=== PATIENT | female | born 1975 | race American Indian/Alaskan Native ===

== ENCOUNTER 2018-10-18 13:15 | Emergency (ER) | payer BC ==
[2018-10-18 14:05] VITALS: BP 141/84
--- NOTE | 2018-10-18 14:07 | Event Note ---
ED Screening Note Date of service: 10/18/18 Time: 14:03 ED Screening Note: This is a 43 y.o. F. that presents to the ER with rash to right foot. Patient states she got a tattoo in July. Reports sand fell onto foot when she removed a beach chair from her trunk. She was placed on Bactrim, Keflex, and topical antibiotics with some improvement but continue to have delayed healing. She was seen by Urgent care and ER. This initial assessment/diagnostic orders/clinical plan/treatment(s) is/are subject to change based on patients health status, clinical progression and re- assessment by fellow clinical providers in the ED. Further treatment and workup at subsequent clinical providers discretion. Patient/guardian urged not to elope from the ED as their condition may be serious if not clinically assessed and managed. Initial orders include: labs ACC for further evaluation
[2018-10-18 14:42] LABS: Hematocrit 30.7 % (30.3-42.9); Hemoglobin 9.8 gm/dl (10.1-14.3); Mean Corpuscular HGB Conc 32 % (30-34); Mean Corpuscular Volume 71 fl (79-97); Platelet Count 291 K/mm3 (140-440); Red Cell Distribution Width 18.4 % (13.2-15.2)
[2018-10-18 15:00] LABS: BUN/Creatinine Ratio 9; Blood Urea Nitrogen 8 mg/dL (7-17); Calcium 8.7 mg/dL (8.4-10.2); Hemolysis Index 0
--- NOTE | 2018-10-18 15:37 | Emergency Department Report ---
HPI - General Chief Complaint: Skin Rash Time Seen by Provider: 10/18/18 14:02 - HPI HPI: 43-year-old female presents to the emergency department with the complaint of a persistent rash or infection of the right foot. The patient got a tattoo on the dorsal portion of her right foot in July of this year and says that she accidentally dumped a bunch of sand onto about 2 days after she got the tattoo. This caused an infection. She was seen at an emergency department and diagnosed with a cellulitis and placed on Keflex. At the time she says it was red and had some pus coming from it. About 2 weeks ago, the patient went to an urgent care where she was placed on Bactrim and Bactroban. She finished this about 5 days ago. She says that this treatment seemed to help but did not completely resolve the rash. Now she complains of small itchy bumps to the dorsum of the right foot over her tattoo. She also thinks she may have had a reaction to the Bactrim as she has some severe itching to her back, arms. She denies any fever. She denies having a primary care physician and has never seen a event decorator and designer for this. ED Past Medical Hx - Past Medical History Additional medical history: anemia - Social History Smoking Status: Never Smoker Substance Use Type: Alcohol - Medications Home Medications: Home Medications Medication Instructions Recorded Confirmed Last Taken Type Clindamycin [Clindamycin CAP] 300 mg PO Q8H #21 cap 10/18/18 Unknown Rx Prednisone [predniSONE 10 mg 10 mg PO .TAPER #1 tab.ds.pk 10/18/18 Unknown Rx (6-Day Pack, 21 Tabs)] ED Review of Systems ROS: Stated complaint: SKIN INFECTION Other details as noted in HPI Comment: All other systems reviewed and negative Constitutional: denies: chills, fever Eyes: denies: eye pain, vision change ENT: denies: ear pain, throat pain Respiratory: denies: cough, shortness of breath Cardiovascular: denies: chest pain, palpitations Gastrointestinal: denies: abdominal pain, vomiting Genitourinary: denies: dysuria, frequency Musculoskeletal: denies: back pain, arthralgia Skin: rash, lesions, pruritus Neurological: denies: headache, weakness Physical Exam - Physical Exam Vital Signs: Vital Signs 10/18/18 14:02 Temperature 97.1 F L Pulse Rate 90 Respiratory 18 Rate Blood Pressure 141/84 O2 Sat by Pulse 100 Oximetry Physical Exam: GENERAL: The patient is well-developed well-nourished. HENT: Normocephalic. Atraumatic. Patient has moist mucous membranes. EYES: Extraocular motions are intact. NECK: Supple. Trachea is midline. ABDOMEN: There is no abdominal distention. SKIN: There are multiple grouped papules to the middle dorsum of the right foot, over her tattoo. This area has some thickened skin and some excoriations consistent with her complaint of itching. No erythema, no bleeding. There was a very small area of some serous-appearing drainage. NEURO: The patient is awake, alert, and oriented. The patient is cooperative. The patient has no focal neurologic deficits. The patient has normal speech. MUSCULOSKELETAL: There is no tenderness or deformity. There is no evidence of acute injury. ED Course Vital Signs 10/18/18 14:02 Temperature 97.1 F L Pulse Rate 90 Respiratory 18 Rate Blood Pressure 141/84 O2 Sat by Pulse 100 Oximetry ED Medical Decision Making - Lab Data Result diagrams: 10/18/18 14:17 10/18/18 14:17 - Medical Decision Making This patient appears with a acute on chronic or a chronic right dorsal foot rash. It does appear improved from when it first began as she previously described a cellulitis and some purulent drainage. Currently I do not see any erythema or purulent drainage. There is a small amount of serous oozing. It is very itchy to her and there are signs of excoriations. Labs do not show any abnormalities including no leukocytosis. Vital signs are stable including being afebrile. Generally, the patient needs to see a event decorator and designer. She will be placed on some steroids and clindamycin. She has been given a referral for 2 different local event decorator and designer. She will return to the ER with any worsening of her symptoms or any acute distress. - Differential Diagnosis dermatitis, cellulitis, eczema, psoriasis Critical Care Time: No Critical care attestation.: If time is entered above; I have spent that time in minutes in the direct care of this critically ill patient, excluding procedure time. ED Disposition Clinical Impression: Dermatitis of right foot, Rash and nonspecific skin eruption Disposition: - TO HOME OR SELFCARE Is pt being admited?: No Condition: Stable Instructions: Acute Rash (ED) Additional Instructions: Please follow up with a event decorator and designer in the next few days. Return to the emergency Department with any worsening of her symptoms, development of fever, or with any acute distress. Take the antibiotics and steroids as prescribed. Prescriptions: Clindamycin [Clindamycin CAP] 300 mg PO Q8H #21 cap Prednisone [predniSONE 10 mg (6-Day Pack, 21 Tabs)] 10 mg PO .TAPER #1 tab.ds.pk Referrals: Juvencio Oneal [Other] - 2-3 Days RYAN GOTTI MD [Staff Physician] - 2-3 Days Time of Disposition: 15:39
== END 2018-10-18 15:55 | disposition home or self-care (01) ==
LOC: ED 13:15
DX: L30.9 Dermatitis, unspecified (principal); Z79.899 Other long term (current) drug therapy
CPT/HCPCS: 36415; 80048; 85027; 99283

== ENCOUNTER 2019-01-28 14:47 | Emergency (ER) | payer BC, OTHER ==
[2019-01-28 15:03] VITALS: BP 140/95
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
[2019-01-28] MEDS ORDERED: TORADOL IM ONE (17:29)
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
== END 2019-01-28 18:20 | disposition home or self-care (01) ==
LOC: ED 14:47
DX: R07.89 Other chest pain (principal); M54.2 Cervicalgia; D64.9 Anemia, unspecified; Z79.899 Other long term (current) drug therapy; V49.40XA Driver injured in collision with unspecified motor vehicles in traffic accident, initial encounter; Y93.89 Activity, other specified; Y92.410 Unspecified street and highway as the place of occurrence of the external cause; Y99.8 Other external cause status
CPT/HCPCS: 72040; 96372; 99283; J1885

== ENCOUNTER 2019-02-21 13:22 | Emergency (ER) | payer BC ==
--- NOTE | 2019-02-21 13:51 | Emergency Department Report ---
ED General Adult HPI - General Chief complaint: Medical Clearance Stated complaint: ELEVATED B/P Time Seen by Provider: 02/21/19 13:41 Source: patient Mode of arrival: Ambulatory Limitations: No Limitations - History of Present Illness Initial comments: Patient is 43 years old female with no significant past medical history. Patient presented to the ER complaining of generalized weakness and dizziness. Patient stated that she woke up this morning with fatigue and she went to [facility] and she became dizzy. Patient stated that she took her blood pressure at [facility] and it was 160/101. Patient denied any loss of consciousness, chest pain, focal weakness numbness or tingling sensation. No shortness of breath. Severity scale (0 -10): 0 - Related Data Previous Rx's Medication Instructions Recorded Last Taken Type Clindamycin [Clindamycin CAP] 300 mg PO Q8H #21 cap 10/18/18 Unknown Rx Prednisone [predniSONE 10 mg 10 mg PO .TAPER #1 tab.ds.pk 10/18/18 Unknown Rx (6-Day Pack, 21 Tabs)] Cyclobenzaprine [Flexeril] 10 mg PO QHS PRN #20 tablet 01/28/19 Unknown Rx Ibuprofen [Motrin 800 MG tab] 800 mg PO Q8HR PRN #30 tablet 01/28/19 Unknown Rx Allergies Allergy/AdvReac Type Severity Reaction Status Date / Time No Known Allergies Allergy Unverified 05/18/15 08:48 ED Review of Systems ROS: Stated complaint: ELEVATED B/P Other details as noted in HPI Comment: All other systems reviewed and negative Constitutional: denies: chills, fever Respiratory: denies: cough, shortness of breath Gastrointestinal: denies: abdominal pain, nausea, vomiting Musculoskeletal: denies: back pain Neurological: headache, weakness (generalized). denies: numbness, paresthesias, confusion, abnormal gait ED Past Medical Hx - Past Medical History Previous Medical History?: No Additional medical history: anemia - Surgical History Past Surgical History?: Yes Additional Surgical History: - Social History Smoking Status: Never Smoker Substance Use Type: None - Medications Home Medications: Home Medications Medication Instructions Recorded Confirmed Last Taken Type Clindamycin [Clindamycin CAP] 300 mg PO Q8H #21 cap 10/18/18 Unknown Rx Prednisone [predniSONE 10 mg 10 mg PO .TAPER #1 tab.ds.pk 10/18/18 Unknown Rx (6-Day Pack, 21 Tabs)] Cyclobenzaprine [Flexeril] 10 mg PO QHS PRN #20 tablet 01/28/19 Unknown Rx Ibuprofen [Motrin 800 MG tab] 800 mg PO Q8HR PRN #30 tablet 01/28/19 Unknown Rx ED Physical Exam - General Limitations: No Limitations General appearance: alert, in no apparent distress - Head Head exam: Present: atraumatic, normocephalic, normal inspection - Eye Eye exam: Present: normal appearance, PERRL - ENT ENT exam: Present: normal exam, normal orophraynx, mucous membranes moist - Neck Neck exam: Present: normal inspection, full ROM. Absent: tenderness, meningismus, lymphadenopathy, thyromegaly - Respiratory Respiratory exam: Present: normal lung sounds bilaterally - Cardiovascular Cardiovascular Exam: Present: regular rate, normal rhythm, normal heart sounds - GI/Abdominal GI/Abdominal exam: Present: soft, normal bowel sounds. Absent: distended, tenderness, guarding, rebound, rigid, organomegaly, mass, bruit, pulsatile mass, hernia - Extremities Exam Extremities exam: Present: normal inspection, full ROM, normal capillary refill. Absent: pedal edema, calf tenderness - Back Exam Back exam: Present: normal inspection, full ROM. Absent: CVA tenderness (R), CVA tenderness (L) - Neurological Exam Neurological exam: Present: alert, oriented X3, CN II-XII intact, normal gait, reflexes normal. Absent: motor sensory deficit - Psychiatric Psychiatric exam: Present: normal mood - Skin Skin exam: Present: warm, intact, normal color ED Course Vital Signs 02/21/19 02/21/19 02/21/19 13:32 14:06 14:52 Temperature 98.2 F Pulse Rate 88 Respiratory 15 12 Rate Blood Pressure 141/87 129/80 [Right] O2 Sat by Pulse 100 Oximetry ED Medical Decision Making - Lab Data Result diagrams: 02/21/19 14:07 02/21/19 14:07 - EKG Data -: EKG Interpreted by Me EKG shows normal: sinus rhythm Rate: normal - EKG Data Interpretation: no acute changes - Radiology Data Radiology results: report reviewed - Medical Decision Making Patient is 43 years old female with no significant past medical history. Patient presented to the ER complaining of generalized weakness and dizziness. Patient stated that she woke up this morning with fatigue and she went to [facility] and she became dizzy. Patient stated that she took her blood pressure at [facility] and it was 160/101. Patient denied any loss of consciousness, chest pain, focal weakness numbness or tingling sensation. No shortness of breath. Patient stated that she is feeling much better. Dizziness is completely resolved. Patient found blood pressure is 141/87. CT brain is negative for acute findings. Labs reviewed and is unremarkable. Patient given a prescription for Norvasc and given [facility] to follow-up for further management. Critical care attestation.: If time is entered above; I have spent that time in minutes in the direct care of this critically ill patient, excluding procedure time. ED Disposition Clinical Impression: Dizziness, Hypertension Disposition: DC-01 TO HOME OR SELFCARE Is pt being admited?: No Condition: Stable Instructions: Dizziness (ED), Hypertension (ED) Referrals: [facility] [Provider Group] - 3-5 Days
[2019-02-21 14:27] LABS: Bilirubin,Urine NEG (Negative); Blood,Urine NEG (Negative); Color,Urine Colorless (Yellow); Protein,Urine <15 mg/dL mg/dL (Negative); RBC,Urine < 1.0 /HPF (0.0-6.0); Urobilinogen,Urine < 2.0 mg/dL (<2.0); WBC,Urine < 1.0 /HPF (0.0-6.0)
[2019-02-21 14:39] LABS: Basophils % (Auto) 0.6 % (0.0-1.8); Eosinophils # (Auto) 0.1 K/mm3 (0.0-0.4); Eosinophils % (Auto) 1.4 % (0.0-4.3); Hematocrit 30.8 % (30.3-42.9); Hemoglobin 9.5 gm/dl (10.1-14.3); Lymphocytes % (Auto) 18.2 % (13.4-35.0); Mean Corpuscular HGB Conc 31 % (30-34); Monocytes # (Auto) 0.7 K/mm3 (0.0-0.8); Monocytes % (Auto) 11.8 % (0.0-7.3); Platelet Count 357 K/mm3 (140-440); Red Blood Count 4.54 M/mm3 (3.65-5.03); Red Cell Distribution Width 18.3 % (13.2-15.2)
[2019-02-21 14:44] LABS: Alanine Aminotransferase 11 units/L (7-56); Albumin 4.2 g/dL (3.9-5); BUN/Creatinine Ratio 11; Blood Urea Nitrogen 10 mg/dL (7-17); Calcium 9.2 mg/dL (8.4-10.2); Hemolysis Index 11
--- NOTE | 2019-02-21 14:47 | Cat Scan Report ---
CT BRAIN: 02/21/2019 INDICATION / CLINICAL INFORMATION: headache and elevated BP. COMPARISON: 05/18/2015 FINDINGS: BRAIN/INTRACRANIAL STRUCTURES: Unenhanced CT images of the brain demonstrate no evidence of acute int racranial abnormality. Ventricles and sulci are normal in size and shape. There is no evidence of ischemic injury, hemorrhage, or mass. There are no abnormal extra-axial fluid collections. There is been no change when compared to the prior exam from 05/18/2015. EXTRACRANIAL STRUCTURES: Unremarkable. IMPRESSION: No acute abnormality. All CT scans at this location are performed using dose reduction to ALARA by means of automated expos ure control. Signer Name: Scott Costa MD Signed: 02/21/2019 2:43 PM Workstation Name: [id number]
[2019-02-21 14:49] LABS: Bilirubin,Direct < 0.2 mg/dL (0-0.2)
[2019-02-21 14:52] VITALS: BP 129/80
[2019-02-21 14:58] LABS: Mean Corpuscular Volume 68 fl (79-97)
== END 2019-02-21 15:29 | disposition home or self-care (01) ==
LOC: ED 13:22
DX: R53.1 Weakness (principal); R42 Dizziness and giddiness; I10 Essential (primary) hypertension; R53.83 Other fatigue; D64.9 Anemia, unspecified; Z79.899 Other long term (current) drug therapy
CPT/HCPCS: 36415; 70450; 80048; 80076; 81001; 84484; 85025; 93005; 93010

== ENCOUNTER 2019-04-24 11:26 | Outpatient (CLI) | payer BC ==
--- NOTE | 2019-04-27 13:20 | Mammography Report ---
DIGITAL SCREENING MAMMOGRAM WITH CAD, 04/24/2019 INDICATION: Routine screening mammography. Status post right benign stereotactic biopsy for calcifica tions 05/28/2018 TECHNIQUE: Digital bilateral 2D mammography was obtained in the craniocaudal and mediolateral obliq ue projections. This examination was interpreted with the benefit of Computer-Aided Detection analysi s. COMPARISON: 05/28/2018 right mammogram. FINDINGS: Breast Density: The breasts are heterogeneously dense, which may obscure small masses. There is no evidence of dominant mass, suspicious calcifications or architectural distortion in eithe r breast. A right inner biopsy clip. IMPRESSION: No mammographic evidence of malignancy. Follow up recommendation: Routine yearly BI-RADS Category 2: Benign. A "normal" or negative report should not discourage follow up or biopsy of a clinically significant f inding. A written summary of these findings will be mailed to the patient. The patient will be entered into a mammography reporting system which will generate a reminder letter for the patient's next appointmen t at the appropriate interval. The [employer] recommends yearly mammograms starting at age 40 and continuing as l saleem as a woman is in good health. Breast MRI is recommended for women with an approximate 20-25% or greater lifetime risk of breast cancer, including women with a strong family history of breast or ova andre cancer or who have been treated for Hodgkin's disease. Signer Name: Saravanan Dorantes MD Signed: 04/27/2019 1:15 PM Workstation Name: [id number]
== END 2019-04-24 11:27 | disposition home or self-care (01) ==
LOC: SPVWC 11:26
PROVIDERS: ATTEND Surgery
DX: Z12.31 Encounter for screening mammogram for malignant neoplasm of breast (principal)
CPT/HCPCS: 77067

== ENCOUNTER 2020-02-17 06:07 | Day surgery (SDC) | payer BC ==
--- NOTE | 2020-01-21 13:39 | Anesthesia Consultation ---
Anesthesia Consult and Med Hx Date of service: 01/27/20 - Airway Anesthetic Teeth Evaluation: Good ROM Head & Neck: Adequate Mental/Hyoid Distance: Adequate Mallampati Class: Class II Intubation Access Assessment: Probably Good - Pre-Operative Health Status ASA Pre-Surgery Classification: ASA2 Proposed Anesthetic Plan: General Nerve Block: TAP - Pulmonary Hx Respiratory Symptoms: No (+2FS) - Cardiovascular System Hx Hypertension: Yes (Past hx-resolved) - Central Nervous System Hx Psychiatric Problems: No - Hematic Hx Anemia: Yes (On iron) Hx Sickle Cell Disease: No - Other Systems Hx Alcohol Use: Yes (1 glass wine daily) Hx Cancer: No
[2020-01-21 13:43] LABS: Basophils # (Auto) 0.1 K/mm3 (0.0-0.1); Eosinophils # (Auto) 0.2 K/mm3 (0.0-0.4); Eosinophils % (Auto) 3.2 % (0.0-4.3); Hematocrit 31.3 % (30.3-42.9); Lymphocytes # (Auto) 0.8 K/mm3 (1.2-5.4); Lymphocytes % (Auto) 16.7 % (13.4-35.0); Mean Corpuscular HGB Conc 32 % (30-34); Mean Corpuscular Volume 74 fl (79-97); Monocytes # (Auto) 0.5 K/mm3 (0.0-0.8); Monocytes % (Auto) 9.4 % (0.0-7.3); Platelet Count 354 K/mm3 (140-440); Red Blood Count 4.21 M/mm3 (3.65-5.03); Red Cell Distribution Width 20.9 % (13.2-15.2)
--- NOTE | 2020-02-16 16:39 | History and Physical Report ---
History of Present Illness Date of examination: 02/16/20 Date of admission: 02/17/2020 Chief complaint: pelvic pain and bleeding History of present illness: 44y/o presents with complaint of vaginal bleeding and pain. The patient has a history of uterine fibroids. Ultrasound reveals an enlarged uterus of 15cm with at least 5 leiomyomas. The largest myoma is 5.3cm. The patient has elected to undergo definitive surgical management. Past History Past Medical History: other (uterine fibroids) Past Surgical History: section Social history: single - Obstetrical History : 1 Para: 1 Hx # Term Pregnancies: 1 Number of Pregnancies: 0 Spontaneous Abortions: 0 Induced : 0 Number of Living Children: 1 Medications and Allergies Allergies Allergy/AdvReac Type Severity Reaction Status Date / Time No Known Allergies Allergy Unverified 05/18/15 08:48 Home Medications Medication Instructions Recorded Confirmed Last Taken Type Cyanocobalamin (Vitamin B-12) 2,500 mcg PO DAILY 01/21/20 01/21/20 Unknown History [Vitamin B12] Ferrous Sulfate [Feosol] 325 mg PO QDAY 01/21/20 01/21/20 Unknown History Active Meds: Active Medications Acetaminophen (Tylenol) 1,000 mg PO PREOP SHEILA Stop: 02/17/20 23:00 Fentanyl (Sublimaze) 100 mcg IV ONCE PRN PRN Reason: sedation for nerve block Stop: 02/17/20 23:00 Gabapentin (Gabapentin) 600 mg PO PREOP NR Stop: 02/17/20 23:00 Lactated Ringer's (Lactated Ringers) 1,000 mls @ 125 mls/hr IV DIRECT SHEILA Midazolam HCl (Versed) 2 mg IV PREOP NR Stop: 02/17/20 23:00 Review of Systems All systems: negative Genitourinary: vaginal bleeding, pelvic pain - Vital Signs Vital signs: Vital Signs Temp Pulse Resp BP Pulse Ox 98.2 F 82 20 149/93 100 01/21/20 13:25 01/21/20 13:25 01/21/20 13:25 01/21/20 13:25 01/21/20 13:25 Temp Pulse Resp BP Pulse Ox 98.2 F 82 20 149/93 100 01/21/20 13:25 01/21/20 13:25 01/21/20 13:25 01/21/20 13:25 01/21/20 13:25 - Physical Exam Breasts: Positive: deferred Cardiovascular: Regular rate Lungs: Positive: Clear to auscultation Abdomen: Positive: normal appearance Results Result Diagrams: 01/21/20 13:30 All other labs normal. Assessment and Plan - Patient Problems (1) Leiomyoma Status: Acute Plan to address problem: scheduled for a robotic hysterectomy and bilateral salpingectomy (2) Dysmenorrhea Status: Acute (3) Menorrhagia Status: Acute
[~2020-02-17 06:07] MED LIST: ACETAMINOPHEN 500 MG TAB PO ONE; ACETAMINOPHEN 500 MG TAB PO SCH; CELECOXIB 200 MG CAP PO NR; GABAPENTIN 300 MG CAP PO NR; LACTATED RINGERS 1,000 ML IV SCH; MAGNESIUM OXIDE 400 MG TAB PO ONE; MIDAZOLAM 2 MG/2 ML INJ IV NR; ceFAZolin/Water 2 GM/20 ML 2 GM/20 ML SYRINGE IV NR; fentaNYL 100 MCG/2 ML INJ IV ONE; fentaNYL 100 MCG/2 ML INJ IV PRN
[2020-02-17] MEDS ORDERED: METHYLENE BLUE 50 MG/10 ML AMP ONE (06:23)
[2020-02-17] MEDS ORDERED: BUPIVACAINE/PF (0.5%) 5 MG/1 ML 30 ML VIAL INFILTRATI ONE (06:23)
[2020-02-17] MEDS ORDERED: NEOMY 40 MG/POLYMYXIN B 200,000 UNITS/ML (GU) AMPULE IR ONE ×2 (06:23→08:40)
[2020-02-17] MEDS ORDERED: BACTERIOSTATIC SODIUM CHLORIDE 0.9% 30 ML VIAL INFILTRATI ONE (06:33)
[2020-02-17] MEDS ORDERED: ceFAZolin/STERILE WATER 2 GM/20 ML SYRINGE IV NR (07:00)
[2020-02-17] MEDS ORDERED: METOPROLOL TARTRATE 5 MG/5 ML INJ IV ONE (07:12)
[2020-02-17] MEDS ORDERED: fentaNYL 100 MCG/2 ML INJ ONE (07:12)
[2020-02-17] MEDS ORDERED: propofoL 200 MG/20 ML VIAL IV ONE (07:12)
[2020-02-17] MEDS ORDERED: ROCURONIUM 50 MG/5 ML INJ IV ONE (07:12)
[2020-02-17] MEDS ORDERED: BUPIVACAINE/PF (0.25%) 2.5 MG/ML 30 ML VIAL INFILTRATI ONE (07:17)
[2020-02-17] MEDS ORDERED: cloNIDine/PF 1,000 MCG/10 ML VIAL EP ONE (07:18)
[2020-02-17] MEDS ORDERED: dexAMETHasone 4 MG/ML VIAL ONE (07:18)
[2020-02-17] MEDS ORDERED: HYDROmorphone 1 MG/1 ML INJ IV PRN (07:35)
--- NOTE | 2020-02-17 07:35 | Anesthesia Day of Surgery ---
Anesthesia Day of Surgery - Day of Surgery Patient Examined: Yes Patient H&P Reviewed: Yes Patient is NPO: Yes
--- NOTE | 2020-02-17 07:37 | Progress Note ---
Regional Anesthesia Block - Regional Anesthesia Block Start Time: : Stop Time: :30 Performed By:: LEFTY OLIVERA Procedure: Bilateral Ultrasound Guided TAP Block Pt IDd, consent obtained, time out performed. Pt on monitor + O2 via NC, VS stable, sedation given per pre-op RN. Sterile prep. Landmarks identified with ultrasound. [1.5]cc skin wheel with 1% lidocaine. Needle advance in plane with ultrasound. [30]cc [0.25]% bupivacaine + [4]mg decadron + [100]mcg clonidine injected incrementally with negative aspiration. Procedure repeated on opposite side. Pt tolerated procedure well, no immediate complications noted
[2020-02-17] MEDS ORDERED: SODIUM CHLORIDE 0.9% IRR 1,500 ML BOTTLE IR ONE (08:40)
--- NOTE | 2020-02-17 09:05 | Operative Report ---
Operative Report Operative Report: Date of surgery: February 17, 2020 Preoperative diagnoses: Symptomatic uterine fibroids; dysmenorrhea; menorrhagia Postoperative diagnoses: Same as above Procedure: Robotic hysterectomy; bilateral salpingectomy Surgeon: Jaimie Devine M.D. [employer] Grounds Superintendent: Liyah Amador Anesthesia: Gen. endotracheal anesthesia Estimated blood loss: Less than 50 mL Pathology: Uterus, cervix, leiomyomas, bilateral tubes Indication: 44-year-old -0-0-1 with a history of symptomatic uterine fibroids. The patient elected to undergo definitive surgical management. Procedure: The patient was taken to the operating room and given general endotracheal anesthesia without complication. She is prepped and draped in a normal sterile fashion. A bivalve speculum was placed in the patient's vagina and a single- tooth tenaculum placed on the anterior lip of the cervix. The uterus was sounded with the uterine sound. A [employer] uterine manipulator was placed in the bivalve speculum was then removed. Attention was then turned to the patient's abdomen where a millimeter supra umbilical skin incision was then made. A Veress needle was placed and peritoneal entry was verified water-filled syringe. Insufflation of the peritoneal cavity was performed with CO2 gas. The 12 mm trocar was then placed under direct visualization. An additional 8 mm trocar was placed on the patient's left and right lateral side just opposite of the supraumbilical trocar. An additional 8 mm right lateral trocar was then placed as the accessory port. The supraumbilical 12 mm trocar site was closed with the Gareth Irizarry device and 0-vicryl suture. The patient was then placed in steep Trendelenburg. The da Bertha robot was then engaged. A fenestrated forcep was placed in arm 2 and a vessel sealer was placed in arm 1. General survey revealed a markedly enlarged fibroid uterus with multiple leiomyoma. The tubes and ovaries were normal in appearance. The surgeon then transferred to the surgical console. The mesosalpinx was then isolated on the right. The vessel sealer was used to coagulate the mesosalpinx which was then transected. The tube was transected from the ovary. The tubo-ovarian ligament was then coagulated and transected. The round ligament was then coagulated and transected also. The vesicouterine peritoneum was then entered from the patient's right side. The uterine vessels were then coagulated with the vessel sealer. The vessels were then transected . Attention was then turned to the patient's left side where the tubo-ovarian ligament and mesosalpinx were again isolated coagulated and transected. The vesical peritoneum was then entered from the left and joined in the midline. Peritoneum was reflected off of the lower uterine segment. Uterine vessels were then coagulated and then transected. The blood supply to the uterus was adequately contained, a posterior colpotomy was made. The V care ring was visualized. Posterior colpotomy was created with the monopolar scissors. The incision was continued circumferentially until anterior colpotomy was made. The uterus had to be bivalved in order to facilitate delivery through the vagina. The cervix and uterus were amputated from the vaginal cuff. The uterus was then removed along with the tubes bilaterally through the vagina and a warm laparotomy sponge was placed and maintain the pneumoperitoneum. The vaginal cuff was then closed in a running fashion with V lock suture. Irrigation of the pelvis was performed. Hemoblast was applied to the incision. The skin was then reapproximated with 4-0 Monocryl. The tissue was sent to pathology which included the cervix, leiomyomas, bilateral tubes and uterus. The patient was then successfully extubated. She was then taken to the recovery room in stable condition. All sponge laps and needle counts were correct x2.
[2020-02-17] MEDS ORDERED: dexAMETHasone 20 MG/5 ML VIAL ONE (09:30)
[2020-02-17] MEDS ORDERED: KETOROLAC 30 MG/1 ML INJ ONE (09:30)
[2020-02-17] MEDS ORDERED: ONDANSETRON 4 MG/2 ML INJ ONE (09:30)
[2020-02-17] MEDS ORDERED: ONDANSETRON 4 MG/2 ML INJ IV ONE (11:10)
--- NOTE | 2020-02-17 13:02 | Post Anesthesia Evaluation ---
- Post Anesthesia Evaluation Patient Participated: Yes Airway Patent: Yes Stable Respiratory Function: Yes Nausea/Vomiting: No Temp > 96.8F: Yes Pain Manageable: Yes Adequeate Hydration: Yes Anesthesia Complications: No
[2020-02-17] MEDS ORDERED: oxyCODONE /ACETAMINOPHEN 5-325MG TAB PO PRN (14:26)
[2020-02-17 17:22] VITALS: BP 128/75
== END 2020-02-17 15:05 | disposition home or self-care (01) ==
LOC: OR 06:07
PROVIDERS: ATTEND Obstetrics & Gynecology
DX: N92.0 Excessive and frequent menstruation with regular cycle (principal); N94.6 Dysmenorrhea, unspecified; D25.2 Subserosal leiomyoma of uterus; D25.0 Submucous leiomyoma of uterus; I10 Essential (primary) hypertension; Z79.899 Other long term (current) drug therapy; Z98.891 History of uterine scar from previous surgery; Z72.89 Other problems related to lifestyle; Z98.890 Other specified postprocedural states; Z86.2 Personal history of diseases of the blood and blood-forming organs and certain disorders involving the immune mechanism
CPT/HCPCS: 36415; 58552; 81025; 84703; 85025; 86850; 86900; 86901; 88307; J0690; J0735; J1100; J1885; J2250; J2405; J2704; J3010; J7120; S2900; 64450; 88309; Q9968

== ENCOUNTER 2021-01-05 07:45 | Outpatient (CLI) | payer BC ==
--- NOTE | 2021-01-05 11:07 | Mammography Report ---
DIGITAL SCREENING MAMMOGRAM WITH CAD, 01/05/2021 CLINICAL INFORMATION / INDICATION: Routine screening mammography. SCREENING MAMMOGRAM TECHNIQUE: Digital bilateral 2D mammography was obtained in the craniocaudal and mediolateral obliqu e projections. This examination was interpreted with the benefit of Computer-Aided Detection analysis . COMPARISON: 04/24/2019 FINDINGS: Breast Density: The breasts are heterogeneously dense, which may obscure small masses. No dominant mass, suspicious calcifications, or architectural distortion in the right breast. New nodular density posterior right breast on the CC view lateral to the nipple. Ultrasound with poss ible spot compression views is recommended. IMPRESSION: New left breast nodular density. Follow up recommendation: Ultrasound BI-RADS Category 0: Incomplete. Needs additional imaging evaluation and/or prior mammograms for allison chavez. A "normal" or negative report should not discourage follow up or biopsy of a clinically significant f inding. A written summary of these findings will be mailed to the patient. The patient will be entered into a mammography reporting system which will generate a reminder letter for the patient's next appointmen t at the appropriate interval. The [employer] recommends yearly mammograms starting at age 40 and continuing as l saleem as a woman is in good health. Breast MRI is recommended for women with an approximate 20-25% or greater lifetime risk of breast cancer, including women with a strong family history of breast or ova andre cancer or who have been treated for Hodgkin's disease. Signer Name: Enrique Simmons MD Signed: 01/05/2021 11:03 AM Workstation Name: [id number]
== END 2021-01-05 07:46 | disposition home or self-care (01) ==
LOC: MAMMO 07:45
PROVIDERS: ATTEND Obstetrics & Gynecology
DX: Z12.31 Encounter for screening mammogram for malignant neoplasm of breast (principal)
CPT/HCPCS: 77067

== ENCOUNTER 2021-02-09 09:24 | Outpatient (CLI) | payer BC ==
--- NOTE | 2021-02-13 08:30 | Mammography Report ---
LEFT DIGITAL DIAGNOSTIC MAMMOGRAM WITH CAD CONVENTIONAL, 02/09/2021 LEFT LIMITED BREAST ULTRASOUND CLINICAL INFORMATION / INDICATION: Patient presents as a callback from screening mammogram for furthe r evaluation of a nodular density in the left breast. R92.8 TECHNIQUE: Digital left mammographic imaging was performed. Spot compression views were obtained. [place] ited ultrasound was performed. This examination was interpreted with the benefit of Computer-Aided De tection (CAD) analysis. COMPARISON: Prior mammogram 01/05/2021 FINDINGS: Breast Density: The breasts are heterogeneously dense, which may obscure small masses. MAMMOGRAPHIC FINDINGS: Spot compression views reveal a persistent 7 mm nodular asymmetric density in the far posterior and slightly lateral left breast seen on CC view only. There is suggestion of a trish ent hilum, raising the possibility of a benign intramammary lymph node. Targeted ultrasound was perfo rmed for further evaluation. ULTRASOUND FINDINGS: Targeted ultrasound evaluation was performed of the area of interest. Targeted ultrasound of the left breast reveals a 1.1 cm benign intramammary lymph node in the 1:00 position l ocated 10 cm from the nipple, and a 1.1 cm benign intramammary lymph node in the 1:00 position locate d 12 cm from the nipple. One of these accounts for the density seen mammographically. No suspicious s onographic abnormality identified. IMPRESSION: 1. The previously described mammographic finding is compatible with a benign intramammary lymph node. No suspicious mammographic or sonographic abnormality identified. Follow up recommendation: Routine yearly BI-RADS Category 2: Benign. A "normal" or negative report should not discourage follow up or biopsy of a clinically significant f inding. A written summary of these findings will be mailed to the patient. The patient will be entered into a mammography reporting system which will generate a reminder letter for the patient's next appointmen t at the appropriate interval. According to the [employer], yearly mammograms are recommended starting at age 40 and continuing as long as a woman is in good health. Breast MRI is recommended for women with an mimi roximately 20-25% or greater lifetime risk of breast cancer, including women with a strong family his tory of breast or ovarian cancer and women who have been treated for Hodgkin's disease. Signer Name: Lisa Schultz MD Signed: 02/13/2021 8:26 AM Workstation Name: [id number]
== END 2021-02-09 09:25 | disposition home or self-care (01) ==
LOC: MAMMO 09:24
PROVIDERS: ATTEND Obstetrics & Gynecology
DX: R92.8 Other abnormal and inconclusive findings on diagnostic imaging of breast (principal)

== ENCOUNTER 2021-04-25 11:42 | Emergency (ER) | payer SELFPAY ==
--- NOTE | 2021-04-25 11:57 | Event Note ---
ED Screening Note ED Screening Note: Presents for dizziness, lightheadedness, headache over the last few days States that she has been monitoring her blood pressure at home and is elevated She denies any prior history of hypertension She denies any vision changes, vomiting, diarrhea, fever, cough, shortness of breath, chest pain, numbness, weakness, speech disturbance, gait disturbance This initial assessment/diagnostic orders/clinical plan/treatment(s) is/are subject to change based on patients health status, clinical progression and re- assessment by fellow clinical providers in the ED. Further treatment and workup at subsequent clinical providers discretion. Patient/guardian urged not to elope from the ED as their condition may be serious if not clinically assessed and managed. Initial orders include: Labs, EKG, CT, ua
[2021-04-25 13:03] LABS: Bacteria,Urine 1+ /HPF (Negative); Bilirubin,Urine NEG (Negative); Blood,Urine SM (Negative); Color,Urine Yellow (Yellow); Mucus,Urine FEW /HPF; Protein,Urine <15 mg/dL mg/dL (Negative); Urobilinogen,Urine < 2.0 mg/dL (<2.0); WBC,Urine < 1.0 /HPF (0.0-6.0)
--- NOTE | 2021-04-25 13:23 | Cat Scan Report ---
. CT head/brain wo con INDICATION / CLINICAL INFORMATION: 46 years Female; dizziness, HTN, headache. TECHNIQUE: Routine CT head without contrast. All CT scans at this location are performed using CT dos e reduction for ALARA by means of automated exposure control. COMPARISON: None. FINDINGS: BRAIN / INTRACRANIAL CONTENTS: No acute hemorrhage, mass effect, midline shift, hydrocephalus, or acu te, large territorial infarct. No signs of significant atrophy or chronic infarct. No significant whi te matter abnormality seen. CRANIOCERVICAL JUNCTION: No significant abnormality. ORBITS: No significant abnormality of visualized orbits. SINUSES / MASTOIDS: Visualized paranasal sinuses and mastoid air cells are essentially clear. ADDITIONAL FINDINGS: None. IMPRESSION: 1. No focal mass, hemorrhage, hydrocephalus, or acute, large territorial infarct. Signer Name: Raul Bernard MD, III Signed: 04/25/2021 1:19 PM Workstation Name: [id number]
[2021-04-25 13:40] LABS: Basophils % (Auto) 0.6 % (0.0-1.8); Eosinophils # (Auto) 0.1 K/mm3 (0.0-0.4); Eosinophils % (Auto) 2.6 % (0.0-4.3); Hematocrit 44.7 % (30.3-42.9); Hemoglobin 14.8 gm/dl (10.1-14.3); Lymphocytes % (Auto) 18.8 % (13.4-35.0); Mean Corpuscular HGB Conc 33 % (30-34); Mean Corpuscular Volume 92 fl (79-97); Monocytes # (Auto) 0.4 K/mm3 (0.0-0.8); Monocytes % (Auto) 8.8 % (0.0-7.3); Platelet Count 315 K/mm3 (140-440); Red Blood Count 4.87 M/mm3 (3.65-5.03); Red Cell Distribution Width 13.2 % (13.2-15.2)
[2021-04-25 14:03] LABS: Alanine Aminotransferase 25 units/L (7-56); Albumin 3.9 g/dL (3.9-5); BUN/Creatinine Ratio 11; Blood Urea Nitrogen 9 mg/dL (7-17); Calcium 9.2 mg/dL (8.4-10.2); Hemolysis Index 14
--- NOTE | 2021-04-25 14:55 | Emergency Department Report ---
ED General Adult HPI - General Chief complaint: Headache Stated complaint: HTN/DIZZY/VALENZUELA Time Seen by Provider: 04/25/21 11:53 Source: patient Mode of arrival: Ambulatory Limitations: No Limitations - History of Present Illness Initial comments: Patient is a 46-year-old female who presents for dizziness, lightheadedness, headache over the last few days. she states that she has been monitoring her blood pressure at home and is elevated on her at home cuff. She denies any prior history of hypertension and does not take blood pressure medication. She denies any vision changes, vomiting, diarrhea, fever, cough, shortness of breath, chest pain, numbness, weakness, speech disturbance, gait disturbance. no allergies to meds. - Related Data Home Medications Medication Instructions Recorded Confirmed Last Taken Cyanocobalamin (Vitamin B-12) 2,500 mcg PO DAILY 01/21/20 02/17/20 02/15/20 [Vitamin B12] Ferrous Sulfate [Feosol] 325 mg PO QDAY 01/21/20 02/17/20 02/16/20 Previous Rx's Medication Instructions Recorded Last Taken Type Docusate Sodium [Colace] 100 mg PO BID PRN #30 capsule 02/17/20 Unknown Rx Ferrous Sulfate [Feosol 325 MG tab] 325 mg PO QDAY #30 tablet 02/17/20 Unknown Rx Ibuprofen [Motrin] 800 mg PO Q8HR PRN #60 tablet 02/17/20 Unknown Rx oxyCODONE /ACETAMINOPHEN [Percocet 1 tab PO Q6HR PRN #30 tablet 02/17/20 Unknown Rx 5/325] Butalb/Acetaminophen/Caffeine 1 cap PO Q8HR PRN #12 cap 04/25/21 Unknown Rx [Fioricet 50-300-40 mg CAP] Meclizine [Antivert] 25 mg PO TID PRN #30 tab 04/25/21 Unknown Rx amLODIPine 5 mg PO DAILY #30 tab 04/25/21 Unknown Rx Allergies Allergy/AdvReac Type Severity Reaction Status Date / Time No Known Allergies Allergy Unverified 05/18/15 08:48 ED Review of Systems ROS: Stated complaint: HTN/DIZZY/VALENZUELA Other details as noted in HPI Comment: All other systems reviewed and negative ED Past Medical Hx - Past Medical History Hx Hypertension: Yes (Past hx-resolved) Additional medical history: anemia - Surgical History Hx Breast Surgery: Yes (Right breast biopsy (has marker)) Additional Surgical History: - Social History Smoking Status: Never Smoker - Medications Home Medications: Home Medications Medication Instructions Recorded Confirmed Last Taken Type Cyanocobalamin (Vitamin B-12) 2,500 mcg PO DAILY 01/21/20 02/17/20 02/15/20 History [Vitamin B12] Ferrous Sulfate [Feosol] 325 mg PO QDAY 01/21/20 02/17/20 02/16/20 History Docusate Sodium [Colace] 100 mg PO BID PRN #30 capsule 02/17/20 Unknown Rx Ferrous Sulfate [Feosol 325 MG tab] 325 mg PO QDAY #30 tablet 02/17/20 Unknown Rx Ibuprofen [Motrin] 800 mg PO Q8HR PRN #60 tablet 02/17/20 Unknown Rx oxyCODONE /ACETAMINOPHEN [Percocet 1 tab PO Q6HR PRN #30 tablet 02/17/20 Unknown Rx 5/325] Butalb/Acetaminophen/Caffeine 1 cap PO Q8HR PRN #12 cap 04/25/21 Unknown Rx [Fioricet 50-300-40 mg CAP] Meclizine [Antivert] 25 mg PO TID PRN #30 tab 04/25/21 Unknown Rx amLODIPine 5 mg PO DAILY #30 tab 04/25/21 Unknown Rx ED Physical Exam - General Limitations: No Limitations General appearance: alert, in no apparent distress - Head Head exam: Present: atraumatic, normocephalic - Eye Eye exam: Present: normal appearance - ENT ENT exam: Present: mucous membranes moist - Respiratory Respiratory exam: Present: normal lung sounds bilaterally. Absent: respiratory distress, wheezes, rales, rhonchi, stridor, chest wall tenderness, accessory muscle use, decreased breath sounds, prolonged expiratory - Cardiovascular Cardiovascular Exam: Present: regular rate, normal rhythm, normal heart sounds. Absent: systolic murmur, diastolic murmur, rubs, gallop - Neurological Exam Neurological exam: Present: alert, oriented X3, CN II-XII intact, normal gait. Absent: motor sensory deficit - Psychiatric Psychiatric exam: Present: normal affect, normal mood - Skin Skin exam: Present: warm, dry, intact ED Course Vital Signs 04/25/21 04/25/21 11:54 15:10 Temperature 98.1 F Pulse Rate 81 71 Respiratory 15 18 Rate Blood Pressure 166/120 167/101 [Right] O2 Sat by Pulse 99 100 Oximetry ED Medical Decision Making - Lab Data Result diagrams: 04/25/21 12:37 04/25/21 12:37 Lab Results 04/25/21 04/25/21 04/25/21 Range/Units 12:37 12:37 12:37 WBC 5.1 (4.5-11.0) K/mm3 RBC 4.87 (3.65-5.03) M/mm3 Hgb 14.8 H (10.1-14.3) gm/dl Hct 44.7 H (30.3-42.9) % MCV 92 (79-97) fl MCH 30 (28-32) pg MCHC 33 (30-34) % RDW 13.2 (13.2-15.2) % Plt Count 315 (140-440) K/mm3 Lymph % (Auto) 18.8 (13.4-35.0) % [place] % (Auto) 8.8 H (0.0-7.3) % Eos % (Auto) 2.6 (0.0-4.3) % Baso % (Auto) 0.6 (0.0-1.8) % Lymph # (Auto) 1.0 L (1.2-5.4) K/mm3 [place] # (Auto) 0.4 (0.0-0.8) K/mm3 Eos # (Auto) 0.1 (0.0-0.4) K/mm3 Baso # (Auto) 0.0 (0.0-0.1) K/mm3 Seg Neutrophils % 69.2 (40.0-70.0) % Seg Neutrophils # 3.5 (1.8-7.7) K/mm3 Sodium 137 (137-145) mmol/L Potassium 3.9 (3.6-5.0) mmol/L Chloride 102.1 (98-107) mmol/L Carbon Dioxide 25 (22-30) mmol/L Anion Gap 14 mmol/L BUN 9 (7-17) mg/dL Creatinine 0.8 (0.6-1.2) mg/dL Estimated GFR > 60 ml/min BUN/Creatinine Ratio 11 % Glucose 87 (65-100) mg/dL Calcium 9.2 (8.4-10.2) mg/dL Total Bilirubin 0.20 (0.1-1.2) mg/dL AST 26 (5-40) units/L ALT 25 (7-56) units/L Alkaline Phosphatase 85 (35-129) units/L Troponin T < 0.010 (0.00-0.029) ng/mL Total Protein 7.6 (6.3-8.2) g/dL Albumin 3.9 (3.9-5) g/dL Albumin/Globulin Ratio 1.1 % HCG, Qual Negative (Negative) Urine Color (Yellow) Urine Turbidity (Clear) Urine pH (5.0-7.0) Ur Specific [place] (1.003-1.030) Urine Protein (Negative) mg/dL Urine Glucose (UA) (Negative) mg/dL Urine Ketones (Negative) mg/dL Urine Blood (Negative) Urine Nitrite (Negative) Urine Bilirubin (Negative) Urine Urobilinogen (<2.0) mg/dL Ur Leukocyte Esterase (Negative) Urine WBC (Auto) (0.0-6.0) /HPF Urine RBC (Auto) (0.0-6.0) /HPF U Epithel Cells (Auto) (0-13.0) /HPF Urine Bacteria (Auto) (Negative) /HPF Urine Mucus /HPF 04/25/21 Range/Units Unknown WBC (4.5-11.0) K/mm3 RBC (3.65-5.03) M/mm3 Hgb (10.1-14.3) gm/dl Hct (30.3-42.9) % MCV (79-97) fl MCH (28-32) pg MCHC (30-34) % RDW (13.2-15.2) % Plt Count (140-440) K/mm3 Lymph % (Auto) (13.4-35.0) % [place] % (Auto) (0.0-7.3) % Eos % (Auto) (0.0-4.3) % Baso % (Auto) (0.0-1.8) % Lymph # (Auto) (1.2-5.4) K/mm3 [place] # (Auto) (0.0-0.8) K/mm3 Eos # (Auto) (0.0-0.4) K/mm3 Baso # (Auto) (0.0-0.1) K/mm3 Seg Neutrophils % (40.0-70.0) % Seg Neutrophils # (1.8-7.7) K/mm3 Sodium (137-145) mmol/L Potassium (3.6-5.0) mmol/L Chloride (98-107) mmol/L Carbon Dioxide (22-30) mmol/L Anion Gap mmol/L BUN (7-17) mg/dL Creatinine (0.6-1.2) mg/dL Estimated GFR ml/min BUN/Creatinine Ratio % Glucose (65-100) mg/dL Calcium (8.4-10.2) mg/dL Total Bilirubin (0.1-1.2) mg/dL AST (5-40) units/L ALT (7-56) units/L Alkaline Phosphatase (35-129) units/L Troponin T (0.00-0.029) ng/mL Total Protein (6.3-8.2) g/dL Albumin (3.9-5) g/dL Albumin/Globulin Ratio % HCG, Qual (Negative) Urine Color Yellow (Yellow) Urine Turbidity Hazy (Clear) Urine pH 7.0 (5.0-7.0) Ur Specific [place] 1.009 (1.003-1.030) Urine Protein <15 mg/dl (Negative) mg/dL Urine Glucose (UA) Neg (Negative) mg/dL Urine Ketones Neg (Negative) mg/dL Urine Blood Sm (Negative) Urine Nitrite Neg (Negative) Urine Bilirubin Neg (Negative) Urine Urobilinogen < 2.0 (<2.0) mg/dL Ur Leukocyte Esterase Neg (Negative) Urine WBC (Auto) < 1.0 (0.0-6.0) /HPF Urine RBC (Auto) 1.0 (0.0-6.0) /HPF U Epithel Cells (Auto) 39.0 H (0-13.0) /HPF Urine Bacteria (Auto) 1+ (Negative) /HPF Urine Mucus Few /HPF - EKG Data EKG shows normal: sinus rhythm, axis, intervals, QRS complexes, ST-T waves Rate: normal - Radiology Data Radiology results: report reviewed Ordering Physician: MIKE JORDAN Date of Service: 04/25/21 Procedure(s): CT head/brain wo con Accession Number(s): [id number] cc: MIKE JORDAN . CT head/brain wo con INDICATION / CLINICAL INFORMATION: 46 years Female; dizziness, HTN, headache. TECHNIQUE: Routine CT head without contrast. All CT scans at this location are performed using CT dose reduction for ALARA by means of automated exposure control. COMPARISON: None. FINDINGS: BRAIN / INTRACRANIAL CONTENTS: No acute hemorrhage, mass effect, midline shift, hydrocephalus, or acute, large territorial infarct. No signs of significant atrophy or chronic infarct. No significant white matter abnormality seen. CRANIOCERVICAL JUNCTION: No significant abnormality. ORBITS: No significant abnormality of visualized orbits. SINUSES / MASTOIDS: Visualized paranasal sinuses and mastoid air cells are essentially clear. ADDITIONAL FINDINGS: None. IMPRESSION: 1. No focal mass, hemorrhage, hydrocephalus, or acute, large territorial infarct. Signer Name: Raul Bernard MD, III Signed: 04/25/2021 1:19 PM Workstation Name: [id number] Transcribed By: HR Dictated By: Raul Bernard MD Electronically Authenticated By: Raul Bernard MD Signed Date/Time: 04/25/211318 DD/ 15 TD/TT: - Medical Decision Making Patient is a 46-year-old female who presents for dizziness, lightheadedness, he adache over the last few days. she states that she has been monitoring her blood pressure at home and is elevated on her at home cuff. She denies any prior history of hypertension and does not take blood pressure medication. She denies any vision changes, vomiting, diarrhea, fever, cough, shortness of breath, chest pain, numbness, weakness, speech disturbance, gait disturbance. no allergies to meds. initial vitals with elevated blood pressure which mildly improved on repeat. Labs are stable. Kidney function is normal. UA without evidence of proteinuria. CT head without contrast with no acute process. EKG is in the normal limits. It appears patient symptoms could likely be related to her elevated blood pressure. Patient given prescription for medication. Discussed lifestyle modifications with patient and the importance of primary care follow- up. Advised patient Please take medication as prescribed. Increase your water intake. Eat a low-sodium diet. Incorporate 30 to 60 minutes of daily exercise. Please keep a blood pressure log. Follow-up with your primary care doctor. Return to emergency room for any new or worsening symptoms. Critical care attestation.: If time is entered above; I have spent that time in minutes in the direct care of this critically ill patient, excluding procedure time. ED Disposition Clinical Impression: Dizziness, Elevated blood pressure reading Headache Qualifiers: Headache type: unspecified Headache chronicity pattern: acute headache Intractability: not intractable Qualified Code(s): R51.9 - Headache, unspecified Disposition: 01 HOME / SELF CARE / HOMELESS Is pt being admited?: No Does the pt Need Aspirin: No Condition: Stable Instructions: Hypertension, Adult, [id number], Dizziness Additional Instructions: Please take medication as prescribed. Increase your water intake. Eat a low- sodium diet. Incorporate 30 to 60 minutes of daily exercise. Please keep a blood pressure log. Follow-up with your primary care doctor. Return to emergency room for any new or worsening symptoms. Prescriptions: amLODIPine 5 mg PO DAILY #30 tab Meclizine [Antivert] 25 mg PO TID PRN #30 tab PRN Reason: Vertigo Butalb/Acetaminophen/Caffeine [Fioricet 50-300-40 mg CAP] 1 cap PO Q8HR PRN #12 cap PRN Reason: headache Referrals: PRIMARY CAREMD [Primary Care Provider] - 3-5 Days REGIS MALDONADO MD [Staff Physician] - 3-5 Days [facility] [Provider Group] - 3-5 Days Time of Disposition: 14:56 Print Language: CAMEROONIAN
[2021-04-25 15:11] VITALS: BP 167/101
--- NOTE | 2021-04-26 10:06 | Electrocardiograph Report ---
[facility] Test Date: 2021-04-25 Test Time: 11:57:17 Pat Name: PEGGY GAFFNEY Department: Room: Gender: F [employer] Teacher: MAI CHOB: 1975 Requested By: TIERA ALARCON Order Number: [id number] Reading MD: Cody Strong Measurements Intervals [place] Rate: 70 P: 33 [place]: 150 QRS: 0 QRSD: 76 T: 30 QT: 404 QTc: 436 Interpretive Statements Sinus rhythm No previous ECG available for comparison Electronically Signed On 04-26-2021 10:06:20 EST by Cody Strong
== END 2021-04-25 15:09 | disposition home or self-care (01) ==
LOC: ED 11:42
DX: R42 Dizziness and giddiness (principal); I10 Essential (primary) hypertension; R51.9 Headache, unspecified
CPT/HCPCS: 36415; 70450; 80053; 81001; 84484; 84703; 85025; 93005; 99284